=== PATIENT | female | born 1950 | race Caucasian/White ===

== ENCOUNTER → 2022-10-04 08:40 | Outpatient (BNVA) | payer MEDICARE, BC, SELFPAY | PROVIDERS: PCP Internal Medicine; Visit Provider Internal Medicine Rheumatology | DX: M05.79 Rheumatoid arthritis with rheumatoid factor of multiple sites without organ or systems involvement (principal); Z79.899 Other long term (current) drug therapy; Z11.59 Encounter for screening for other viral diseases; R76.8 Other specified abnormal immunological findings in serum; Z71.85 Encounter for immunization safety counseling; Z11.1 Encounter for screening for respiratory tuberculosis; Z86.39 Personal history of other endocrine, nutritional and metabolic disease | CPT/HCPCS: 80076; 82306; 82565; 85025; 86480; 86704; 86803; 87340; 99204 ==